=== PATIENT | female | born 1990 | race American Indian/Alaskan Native ===

== ENCOUNTER 2016-08-23 16:47 | Emergency (ER) | payer SELFPAY | END 2016-08-23 16:48 | disposition left against medical advice (07) | LOC: ED 16:47 | DX: J02.9 Acute pharyngitis, unspecified (principal); Z53.21 Procedure and treatment not carried out due to patient leaving prior to being seen by health care provider ==

== ENCOUNTER 2017-03-01 14:50 | Outpatient (CLI) | payer MEDICAID ==
[2017-03-01 15:56] VITALS: BP 101/62
[2017-03-01] MEDS ORDERED: LACTATED RINGERS 500 ML IV ONE (16:00)
== END 2017-03-01 16:44 | disposition home or self-care (01) ==
LOC: TRG 14:50 → LD 14:52 → TRG 16:44
PROVIDERS: ATTEND Obstetrics & Gynecology
DX: O47.02 False labor before 37 completed weeks of gestation, second trimester (principal); Z3A.23 23 weeks gestation of pregnancy
CPT/HCPCS: 59025

== ENCOUNTER 2017-06-29 10:30 | Inpatient (IN) | payer MEDICAID ==
[2017-06-29] MEDS ORDERED: MINERAL OIL PO PRN (11:44)
[2017-06-29] MEDS ORDERED: ePHEDrine SULFATE IV PRN (11:44)
[2017-06-29] MEDS ORDERED: ZOFRAN IV PRN ×2 (11:44→19:25)
[2017-06-29] MEDS ORDERED: BRETHINE IVP PRN (11:44)
[2017-06-29] MEDS ORDERED: STADOL IV PRN (11:44)
[2017-06-29] MEDS ORDERED: SUBLIMAZE IV PRN (11:44)
[2017-06-29] MEDS ORDERED: PHENERGAN PO PRN ×2 (11:44→19:25)
[2017-06-29] MEDS ORDERED: XYLOCAINE 2% INFILTRATI ONE (11:44)
[2017-06-29] MEDS ORDERED: BRETHINE SUB-Q PRN (11:44)
--- NOTE | 2017-06-29 11:49 | History and Physical Report ---
History of Present Illness Date of examination: 06/29/17 Chief complaint: Labor History of present illness: Pt is a 27yo BF EDC 06/26/17; EGA 40 3/7 weeks presents to L&D complaining of SROM clear fluid @ 1100 followed by RUC's q 3-4 mins. She received care at [facility] since 14 weeks and course was unremarkable. records are available and GBS is unknown Past History Past Medical History: no pertinent history Past Surgical History: no surgical history Family/Genetic History: none Social history: no significant social history, single - Obstetrical History Expected Date of Delivery: 06/26/17 Actual Gestation: 40 Week(s) 3 Day(s) : 4 Medications and Allergies Allergies Allergy/AdvReac Type Severity Reaction Status Date / Time No Known Allergies Allergy Verified 11/06/15 09:45 Review of Systems All systems: negative - Physical Exam Breasts: Positive: deferred, mass Lungs: Positive: Clear to auscultation Genitourinary (Female): Positive: normal external genitalia Vagina: Positive: normal moisture Uterus: Positive: enlarged Extremities: Positive: normal - Obstetrical FHR: category 1 Uterine Contraction Monitor Mode: External Cervical Dilatation: 4 Cervical Effacement Percentage: 80 station: -2 Uterine Contraction Pattern: Irregular Uterine Tone Measurement Phase: Contraction Uterine Contraction Intensity: Moderate Results Result Diagrams: 06/29/17 11:30 All other labs normal. Assessment and Plan - Patient Problems (1) 40 weeks gestation of Onset Date: 06/29/17 Current Visit: Yes Status: Acute Plan to address problem: A: IUP @ 40 3/7 weeks in labor Unknown GBS P: Admit to L&D for expectant vaginal delivery IV Ampicillin
[2017-06-29] MEDS ORDERED: LACTATED RINGERS 1,000 ML IV SCH (12:00)
[2017-06-29] MEDS ORDERED: PITOCin/NS 20 UNIT/1000ML DRIP 20 UNITS/1,000 ML BAG IV SCH ×2 (12:00→20:00)
[2017-06-29] MEDS ORDERED: POLYCILLIN/NS 2 GM/100 ML 2 GM/100 ML BAG IV ONE ×2 (12:00→15:53)
[2017-06-29] MEDS ORDERED: PITOCin/NS 30 UNIT/500ML 30 UNITS/500 ML BAG IV SCH ×2 (12:00)
[2017-06-29 12:43] LABS: Hematocrit 34.7 % (30.3-42.9); Hemoglobin 11.2 gm/dl (10.1-14.3); Mean Corpuscular HGB Conc 32 % (30-34); Mean Corpuscular Hemoglobin 27 pg (28-32); Mean Corpuscular Volume 84 fl (79-97); Platelet Count 233 K/mm3 (140-440); Red Blood Count 4.13 M/mm3 (3.65-5.03); Red Cell Distribution Width 15.3 % (13.2-15.2)
[2017-06-29] MEDS ORDERED: AMPICILLIN/NS 1 GM/50 ML 1 GM/50 ML BAG IV SCH (16:00)
--- NOTE | 2017-06-29 19:01 | Procedure Note ---
OB Delivery Note - Delivery Date of Delivery: 06/29/17 Surgeon: SHANNAN LATHAM Estimated blood loss: 100cc - Vaginal Delivery presentation: vertex Delivery position: OA Intrapartum events: none Delivery induction: none Delivery augmentation: rupture of membranes Delivery monitor: external FHT, external uterine Route of delivery: Delivery placenta: spontaneous Delivery cord: nuchal cord (x1), 3 umbilical vessels Episiotomy: none Delivery laceration: none Anesthesia: intravenous Delivery comments: delivered OA and placed on Mom's chest for fjli-tk-tkad bonding and delayed cord clamping, cut by Dad - Infant A at 1 minute: 8 at 5 minutes: 9 Infant Gender: Male (3231gms)
[2017-06-29] MEDS ORDERED: NORCO 5/325 PO PRN (19:25)
[2017-06-29] MEDS ORDERED: PHENERGAN PR PRN (19:25)
[2017-06-29] MEDS ORDERED: BENADRYL PO PRN (19:25)
[2017-06-29] MEDS ORDERED: MILK OF MAGNESIA PO PRN (19:25)
[2017-06-29] MEDS ORDERED: TUCKS PAD TP PRN (19:25)
[2017-06-29] MEDS ORDERED: LANSINOH TP PRN (19:25)
[2017-06-29] MEDS ORDERED: TYLENOL PO PRN (19:25)
[2017-06-29] MEDS ORDERED: DULCOLAX PR PRN (19:25)
[2017-06-29] MEDS ORDERED: SODIUM CHLORIDE FLUSH SYRINGE 10 ML IV SCH (20:00)
[2017-06-30] MEDS: FEOSOL PO SCH ×3 (00:25→22:39)
[2017-06-30] MEDS: COLACE PO SCH ×3 (00:25→22:39)
[2017-06-30] MEDS: MOTRIN PO SCH ×4 (00:25→18:07)
[2017-06-30] MEDS ORDERED: BOOSTRIX IM ONE (06:00)
[2017-06-30] MEDS: SENOKOT S PO SCH ×3 (06:23→22:39)
[2017-06-30 07:33] LABS: Hematocrit 28.8 % (30.3-42.9); Hemoglobin 9.6 gm/dl (10.1-14.3)
--- NOTE | 2017-06-30 07:44 | Progress Note ---
Assessment and Plan - Patient Problems (1) 40 weeks gestation of Onset Date: 06/29/17 Current Visit: Yes Status: Resolved (2) (normal spontaneous vaginal delivery) Onset Date: 06/30/17 Current Visit: Yes Status: Resolved Plan to address problem: A: S/P - PPD #1 Doing well Asymptomatic anemia - stable P: May go home tomorrow. Subjective - Subjective Date of service: 06/30/17 Principal diagnosis: s/p - PPD #1 Interval history: Pt is feeling well without complaints. Bleeding improved. Patient reports: appetite normal, voiding normally, pain well controlled, ambulating normally, no dizzy ambulation, no nauseated [place]: doing well, nursing well Objective - Vital Signs Latest vital signs: Vital Signs Temp Pulse Resp BP Pulse Ox 06/30/17 04:40 98.0 F 67 18 94/50 06/29/17 22:23 98.8 F 68 20 102/53 06/29/17 21:12 98.2 F 94 H 18 113/85 06/29/17 21:00 98.4 F 74 18 124/72 06/29/17 13:01 98.0 F 98 H 16 105/58 98 Intake and Output 06/29/17 06/30/17 06/30/17 22:59 06:59 14:59 Intake Total 480 Output Total 400 1100 Balance -400 -620 Intake: Oral 480 Output: Urine 400 1100 Void 400 1100 Other: Total, Intake Amount 480 Total, Output Amount 400 800 Estimated Blood Loss 100 - Exam Breasts: Present: deferred Cardiovascular: Present: Regular rate Lungs: Present: Clear to auscultation Abdomen: Present: normal appearance, soft Uterus: Present: normal, firm, fundal height below umbilicus Extremities: Present: normal - Labs Labs: Abnormal lab results 06/29/17 06/30/17 Range/Units 11:30 07:12 WBC 12.9 H (4.5-11.0) K/mm3 Hgb 9.6 L (10.1-14.3) gm/dl Hct 28.8 L (30.3-42.9) % MCH 27 L (28-32) pg RDW 15.3 H (13.2-15.2) % Laboratory Tests 06/29/17 06/29/17 06/30/17 11:30 11:30 07:12 WBC 12.9 H RBC 4.13 Hgb 11.2 9.6 L Hct 34.7 28.8 L MCV 84 MCH 27 L MCHC 32 RDW 15.3 H Plt Count 233 Blood Type A POSITIVE Antibody Screen Negative
[2017-06-30] MEDS: PRENATAL VITAMIN PO SCH (11:04)
--- NOTE | 2017-06-30 14:17 | Discharge Summary ---
Providers - Providers Date of Admission: 06/29/17 12:26 Date of discharge: 07/01/17 Attending physician: SHANNAN LATHAM Primary care physician: SHANNAN LATHAM Hospitalization Reason for admission: active labor, rupture of membranes, IUP at term Delivery: Episiotomy: none Laceration: none Other procedures: none complications: none Discharge diagnosis: IUP at term delivered [place] baby: male Hospital course: Unremarkable. Condition at discharge: Good Disposition: DC-01 TO HOME OR SELFCARE - Discharge Diagnoses (1) 40 weeks gestation of Status: Resolved (2) (normal spontaneous vaginal delivery) Status: Resolved Plan - Discharge Medications Prescriptions: Ferrous Sulfate [Feosol 325 MG tab] 325 mg PO BID #60 tablet Ibuprofen [Motrin 600 MG tab] 600 mg PO Q6HR #30 tablet Vit-Fe Fumar-FA [ Vitamin] 1 each PO QDAY #30 tablet - Provider Discharge Summary Activity: routine, no sex for 6 weeks, no heavy lifting 4 weeks, no strenuous exercise Diet: routine Instructions: routine Additional instructions: [] Smoking cessation referral if applicable(refer to patient education folder for contact #) [] Refer to [facility] Booklet Call your doctor immediately for: * Fever > 100.5 * Heavy vaginal bleeding ( >1 pad per hour) * Severe persistent headache * Shortness of breath * Reddened, hot, painful area to leg or breast * Drainage or odor from incision. * Keep incision clean and dry at all times and follow doctor's instructions regarding bathing/showering - Follow up plan Follow up: SHANNAN LATHAM MD [Primary Care Provider] - 6 Weeks BIPIN FORTE CNM [Advanced Practice Nurse] - 6 Weeks
[2017-06-30] MEDS ORDERED: M-M-R II VACCINE SUB-Q ONE (19:25)
[2017-07-01] MEDS: MOTRIN PO SCH ×3 (05:58→18:28)
[2017-07-01] MEDS: PRENATAL VITAMIN PO SCH (11:26)
[2017-07-01] MEDS: FEOSOL PO SCH (11:27)
[2017-07-01] MEDS: COLACE PO SCH (11:27)
[2017-07-01] MEDS: SENOKOT S PO SCH (11:30)
[2017-07-01 19:37] VITALS: BP 97/57
== END 2017-07-01 18:00 | disposition home or self-care (01) | DRG 775 ==
LOC: TRG 10:30 → LD 12:26 → OB 22:06
PROVIDERS: ADMIT Obstetrics & Gynecology; ATTEND Obstetrics & Gynecology
PROC: 10E0XZZ Delivery of Products of Conception, External Approach (ICD-10-PCS; principal; 2017-06-29)
DX: O69.81X0 Labor and delivery complicated by cord around neck, without compression, not applicable or unspecified (principal); Z3A.40 40 weeks gestation of pregnancy; Z37.0 Single live birth; O90.81 Anemia of the puerperium; D64.9 Anemia, unspecified
CPT/HCPCS: 36415; 85014; 85018; 85027; 86592; 86850; 86900; 86901; 90715; 99211; A6250; G0463; J0290; J0595; J2590; J7120

== ENCOUNTER 2020-12-24 17:22 | Emergency (ER) | payer MEDICAID ==
[2020-12-24] MEDS ORDERED: ACETAMINOPHEN 500 MG TAB PO ONE (18:08)
--- NOTE | 2020-12-24 18:12 | Emergency Department Report ---
ED General Adult HPI - General Chief complaint: Upper Respiratory Infection Stated complaint: SINUS Time Seen by Provider: 12/24/20 17:57 Source: patient Mode of arrival: Ambulatory Limitations: No Limitations - History of Present Illness Initial comments: 30-year-old female patient (6 weeks gestation) presents to the emergency department with complaints of cough, congestion, and sinus pressure for 2 days. Patient has been taking Robitussin which has relieved her cough but has not helped with her other symptoms. Patient has not received her COVID-19 vaccination series. Patient tested negative for COVID-19 this morning. No known sick contacts. No current steroid or antibiotic use. No recent travel. Denies fever, chills, sore throat, abdominal pain, vomiting, neck stiffness, rash. Denies all other complaints at this time. - Related Data Previous Rx's Medication Instructions Recorded Last Taken Type Ferrous Sulfate [Feosol 325 MG tab] 325 mg PO BID #60 tablet 06/30/17 12/24/20 Rx 1 Ibuprofen [Motrin 600 MG tab] 600 mg PO Q6HR #30 tablet 06/30/17 12/24/20 Rx 1 Vit-Fe Fumar-FA [ 1 each PO QDAY #30 tablet 06/30/17 12/24/20 Rx Vitamin] 1 Fluticasone [Flonase] 1 spray NS QDAY #1 bottle 12/24/20 Unknown Rx Allergies Allergy/AdvReac Type Severity Reaction Status Date / Time No Known Allergies Allergy Verified 12/24/20 19:19 ED Review of Systems ROS: Stated complaint: SINUS Other details as noted in HPI Other: GENERAL: Negative for fever, chills, weight change, anorexia, fatigue. ENT: Positive for congestion and sinus pressure. CARDIOVASCULAR: Negative for chest pain, palpitations, lower extremity swelling. PULMONARY: Positive for cough. GASTROINTESTINAL: Negative for abdominal pain, nausea, vomiting, diarrhea, constipation. MUSCULOSKELETAL: Negative for joint pain, joint swelling, myalgias, back pain, neck pain. NEUROLOGICAL: Negative for headache, seizure, syncope, paresthesias, weakness. INTEGUMENTARY: Negative for erythema, rash, diaphoresis, laceration, ecchymosis. HEMATOLOGICAL: Negative for hemoptysis, hematemesis, hematochezia, hematuria. PSYCHIATRIC: Negative for hallucinations, suicidal ideation, homicidal ideation, anxiety, depression. ED Past Medical Hx - Past Medical History Hx Hypertension: No Hx Congestive Heart Failure: No Hx Diabetes: No Hx Deep Vein Thrombosis: No Hx Renal Disease: No Hx Sickle Cell Disease: No Hx Seizures: No Hx Asthma: No Hx COPD: No Hx HIV: No - Surgical History Additional Surgical History: tonsilectomy - Social History Smoking Status: Never Smoker Substance Use Type: None - Medications Home Medications: Home Medications Medication Instructions Recorded Confirmed Last Taken Type Ferrous Sulfate [Feosol 325 MG tab] 325 mg PO BID #60 tablet 06/30/17 12/24/20 12/24/20 Rx 1 Ibuprofen [Motrin 600 MG tab] 600 mg PO Q6HR #30 tablet 06/30/17 12/24/20 12/24/20 Rx 1 Vit-Fe Fumar-FA [ 1 each PO QDAY #30 tablet 06/30/17 12/24/20 12/24/20 Rx Vitamin] 1 Fluticasone [Flonase] 1 spray NS QDAY #1 bottle 12/24/20 Unknown Rx ED Physical Exam - General Limitations: No Limitations - Other Other exam information: General: Awake and alert. No acute distress. Head: Atraumatic, normocephalic. Eyes: Extraocular movements intact. No periorbital edema or erythema. Pupils are equal and round, reactive to light, no nystagmus. Normal sclera and conjunctiva. Left frontal sinus tenderness. ENT: Oral mucosa is moist. Normal pharyngeal exam. Neck: Supple. No lymphadenopathy. Pulmonary: No respiratory distress. Clear to auscultation bilaterally. Cardiac: Tachycardic. Pulses are palpable and equal bilaterally. No lower extremity cyanosis or edema. Skin: Warm and dry. No rashes. Abdomen: Soft, non-tender, non-protuberant. No guarding, rigidity, or rebound. Bowel sounds are normal. No organomegaly or masses noted. Back: Normal alignment. No CVA tenderness. Extremities: Symmetrical. Full range of motion intact. Neurological: Alert and oriented, appropriately interactive, no focal deficits. Psych: Cooperative. Appropriate mood and affect. Speech is evenly metered. Thoughts are logically construed. ED Course Vital Signs 12/24/20 12/24/20 17:54 19:05 Temperature 98.5 F 97.8 F Pulse Rate 114 H 88 Respiratory 20 14 Rate Blood Pressure 110/70 Blood Pressure 104/68 [Right] O2 Sat by Pulse 99 100 Oximetry ED Medical Decision Making - Medical Decision Making Differential diagnosis including but not limited to: sinusitis, pharyngitis, pneumonia, periorbital/orbital cellulitis, meningitis, influenza, allergic rhinitis, viral syndrome On reevaluation, patient remains stable. Tachycardia resolved. Repeat heart rate in the 80s. No hypoxia, no respiratory distress. Chest x-ray is negative. Abdomen shielded for x-ray. History and exam findings suggestive of sinusitis. Patient does not meet criteria for empiric antibiotics due to symptom duration less than 14 days. Patient be discharged home with appropriate symptomatic treatment and instructed to follow-up with her laborer [employer] as scheduled. Emphasized importance of refraining from taking any [id number] cough/cold medications unless otherwise instructed by her laborer [employer] processing. Patient expressed understanding and is agreeable to plan of care. Disease transmission precautions discussed. Strict return precautions provided. Repeat exam is unremarkable and benign. History, exam, diagnostic testing, and current condition do not suggest worrisome pathology to warrant further testing, continued ED treatment, admission, or surgical evaluation at this point. Given the low probability of a significant medical illness, it would be more likely to result in harm than benefit to perform further testing at this stage. Discussed findings, presumptive diagnosis, need for follow-up and specific signs/symptoms that should prompt immediate return to the emergency department. Instructions were explained in detail to the patient in addition to giving written discharge information. Patient expressed understanding and was given the opportunity to ask questions, all of which were satisfactorily answered prior to discharge home. Critical care attestation.: If time is entered above; I have spent that time in minutes in the direct care of this critically ill patient, excluding procedure time. ED Disposition Clinical Impression: Sinusitis Qualifiers: Sinusitis location: unspecified location Chronicity: acute Recurrence: not specified as recurrent Qualified Code(s): J01.90 - Acute sinusitis, unspecified Disposition: 01 HOME / SELF CARE / HOMELESS Is pt being admited?: No Does the pt Need Aspirin: No Condition: Stable Instructions: Sinusitis, Adult, Shhi-hz-Dtut Additional Instructions: Take Tylenol every 4 hours as needed for pain. Take Benadryl at nighttime as needed. Use Flonase as directed. Exposure to warm humidified air may help relieve congestion. Honey is an excellent natural cough suppressant. Rest. Drink plenty of fluids. Wash hands frequently to prevent disease transmission. Do not share food or drinks with others. 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 Call tomorrow to schedule an appointment. Return to the emergency department immediately for new or worsening symptoms. Prescriptions: Fluticasone [Flonase] 1 spray NS QDAY #1 bottle Referrals: BIPIN GAYLE MD [Staff Physician] - 3-5 Days Time of Disposition: 19:47
[2020-12-24 19:11] VITALS: BP 104/68
--- NOTE | 2020-12-24 19:26 | XRay Report ---
CHEST 1 VIEW 12/24/2020 6:16 PM INDICATION / CLINICAL INFORMATION: cough. COMPARISON: None available. FINDINGS: SUPPORT DEVICES: None. HEART / MEDIASTINUM: No significant abnormality. LUNGS / PLEURA: No significant pulmonary or pleural abnormality. No pneumothorax. ADDITIONAL FINDINGS: No significant additional findings. IMPRESSION: No acute abnormality. Signer Name: Juan Jose Pereyra MD Signed: 12/24/2020 7:22 PM Workstation Name: [id number]
== END 2020-12-24 19:57 | disposition home or self-care (01) ==
LOC: ED 17:22
DX: O99.511 Diseases of the respiratory system complicating pregnancy, first trimester (principal); J01.90 Acute sinusitis, unspecified; Z3A.01 Less than 8 weeks gestation of pregnancy; Z98.890 Other specified postprocedural states
CPT/HCPCS: 71045; 99283

== ENCOUNTER 2021-05-19 18:42 | Outpatient (CLI) | payer MEDICAID ==
[2021-05-19] MEDS ORDERED: LACTATED RINGERS 500 ML IV ONE (20:00)
== END 2021-05-19 19:29 | disposition home or self-care (01) ==
LOC: TRG 18:42 → APU 18:43 → TRG 19:29
PROVIDERS: ATTEND Obstetrics & Gynecology
DX: Z34.92 Encounter for supervision of normal pregnancy, unspecified, second trimester (principal); Z3A.26 26 weeks gestation of pregnancy
CPT/HCPCS: 59025